=== PATIENT | male | born 1995 | race Caucasian/White ===

== ENCOUNTER 2018-03-31 00:49 | Emergency (ER) | payer OTHER ==
[~2018-03-31] VITALS: Ht 167.6 cm; Wt 81.2 kg
[2018-03-31 00:54] VITALS: Ht 167.6 cm; Wt 81.2 kg
[2018-03-31 02:30] VITALS: BP 125/75
== END 2018-03-31 02:30 | disposition home or self-care (01) ==
LOC: ED 00:49
DX: S91.331A Puncture wound without foreign body, right foot, initial encounter (principal); R03.0 Elevated blood-pressure reading, without diagnosis of hypertension; W22.8XXA Striking against or struck by other objects, initial encounter; Y93.89 Activity, other specified; Y92.89 Other specified places as the place of occurrence of the external cause; Y99.8 Other external cause status
CPT/HCPCS: 90715; Q0092